=== PATIENT | female | born 1950 | race Caucasian/White ===

== ENCOUNTER → 2017-05-30 | Outpatient (CLI) | payer OTHER ==
[~2017-05-30] MED LIST: LIDOCAINE 1%, 20ML ONE
== END | disposition home or self-care (01) ==
LOC: RAD 09:34
PROVIDERS: ATTEND Surgery
DX: E07.9 Disorder of thyroid, unspecified (principal)
CPT/HCPCS: 76942; 88172; 88173; J3490